=== PATIENT | male | born 1955 | race Caucasian/White ===

== ENCOUNTER 2021-12-31 09:07 | Day surgery (SDC) | payer BC ==
[2021-12-26 12:44] VITALS: BMI 34.4
[2021-12-31 09:43] VITALS: RESP 18
[2021-12-31] MEDS ORDERED: MIDAZOLAM HCL 2 MG/2 ML SINGLE DOSE VIAL ONE (11:02)
[2021-12-31] MEDS ORDERED: PROPOFOL 20 ML ONE (11:02)
[2021-12-31] MEDS ORDERED: oxyCODONE HCL 5 MG TABLET PO PRN (12:00)
[2021-12-31] MEDS ORDERED: LACTATED RINGERS SOLUTION 1,000 ML IV SCH (12:00)
[2021-12-31] MEDS ORDERED: ONDANSETRON 4 MG/2 ML VIAL IVPUSH PRN (12:00)
[2021-12-31 12:04] VITALS: TEMP 97.8
[2021-12-31 12:17] VITALS: BP 128/74; PULSE 65
== END 2021-12-31 12:27 | disposition home or self-care (01) ==
LOC: FASU 09:07
PROVIDERS: ATTEND Orthopaedic Surgery Hand Surgery
PROC: 01N50ZZ Release Median Nerve, Open Approach (ICD-10-PCS; principal; 2021-12-31 11:20)
DX: G56.02 Carpal tunnel syndrome, left upper limb (principal)